=== PATIENT | female | born 1990 | race Caucasian/White ===

== ENCOUNTER 2023-04-01 01:03 | Emergency (ER) | payer MEDICAID ==
[~2023-04-01] VITALS: Ht 152.4 cm; Wt 105.2 kg
[2023-04-01 01:49] VITALS: BP_SYST 141; PULSE 101; RESP 19; TEMP 97.7; O2SAT 97
[2023-04-01] MEDS ORDERED: MED4 PO (03:02)
[2023-04-01 03:15] VITALS: BP_SYST 139; PULSE 92; RESP 17; TEMP 98; O2SAT 98
== END 2023-04-01 03:15 | disposition home or self-care (01) ==
LOC: SED 01:03
DX: J06.9 Acute upper respiratory infection, unspecified (principal); J02.9 Acute pharyngitis, unspecified; R05.9 Cough, unspecified; J45.909 Unspecified asthma, uncomplicated; Z91.040 Latex allergy status; Z79.899 Other long term (current) drug therapy; Z20.822 Contact with and (suspected) exposure to COVID-19
CPT/HCPCS: 36415; 99283